=== PATIENT | female | born 2000 | race Caucasian/White ===

== ENCOUNTER 2020-03-02 17:00 | Emergency (ER) | payer SELFPAY ==
[2020-03-02] MEDS ORDERED: ONDANSETRON INJ 4 MG/2 ML VIAL IV ONE (17:58)
[2020-03-02] MEDS ORDERED: MORPHINE SULFATE INJ 10 MG/ML VIAL IV ONE (17:58)
[2020-03-02] MEDS ORDERED: SODIUM CHLORIDE 0.9% 1000ML 1,000 ML IVS ONE (17:58)
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
--- NOTE | 2020-03-02 19:41 | RAD ---
EXAM: Ribs,Right 3 Views CLINICAL HISTORY: pain COMPARISON: None. TECHNIQUE: AP and oblique radiographs of the right ribs FINDINGS: No evidence of displaced rib fracture. No pneumothorax. IMPRESSION: 1. No acute abnormality. Electronically signed by: Eliel Velasquez MD 03/02/2020 7:40 PM CDT
[2020-03-02 19:57] VITALS: BP 116/77; TEMP 97.2; O2SAT 99
== END 2020-03-02 20:05 | disposition home or self-care (01) ==
LOC: ER 17:00
DX: S20.211A Contusion of right front wall of thorax, initial encounter (principal); R07.89 Other chest pain; V94.4XXA Injury to barefoot water-skier, initial encounter; Y93.16 Activity, rowing, canoeing, kayaking, rafting and tubing
CPT/HCPCS: 71101; 71260; 74177; 80053; 84703; 85025; J2270; J2405; J7030